=== PATIENT | female | born 1975 | race Caucasian/White ===

== ENCOUNTER → 2016-05-11 | Outpatient (CLI) | payer OTHER ==
--- NOTE | 2016-05-11 11:51 | DX ---
Right Ankle, 3 Views Clinical indication: Fell down stairs. Findings: There is a 1 x 7 mm avulsion off the anterior talus. There is also a small lucency along th e anterior/superior calcaneus consistent with a fracture. This small fragment measures 4 x 2 mm and i s minimally anteriorly displaced. There is a moderate amount of soft tissue swelling. Impression: 1. Anterior/ superior talar avulsion. 2. Small fracture off the anterior/superior calcaneus, minimally displaced. I discussed these findings with Dr. Montalvo, who agrees with the above. Critical results relayed by Davon Mc to Dr. Holloway on May 11, 2016 at 11:31 a.m.
== END ==
LOC: BMCIMAGING 10:56
PROVIDERS: ATTEND Internal Medicine
DX: S92.151A Displaced avulsion fracture (chip fracture) of right talus, initial encounter for closed fracture (principal); S92.021A Displaced fracture of anterior process of right calcaneus, initial encounter for closed fracture

== ENCOUNTER → 2016-08-09 | Outpatient (CLI) | payer OTHER | LOC: FIMAGING 11:44 | DX: Z12.31 Encounter for screening mammogram for malignant neoplasm of breast (principal) | CPT/HCPCS: G0202 ==

== ENCOUNTER → 2016-09-15 | Outpatient (CLI) | payer OTHER | LOC: BMCIMAGING 14:10 | PROVIDERS: ATTEND Family Medicine | DX: S92.211A Displaced fracture of cuboid bone of right foot, initial encounter for closed fracture (principal) ==

== ENCOUNTER → 2016-09-19 | Outpatient (CLI) | payer OTHER | LOC: BMCIMAGING 10:02 | PROVIDERS: ATTEND Physician Assistant | DX: M79.644 Pain in right finger(s) (principal); S92.211A Displaced fracture of cuboid bone of right foot, initial encounter for closed fracture ==

== ENCOUNTER → 2017-04-12 | Outpatient (CLI) | payer OTHER | LOC: FIMAGING 09:25 | PROVIDERS: ATTEND Midwife | DX: N92.6 Irregular menstruation, unspecified (principal) ==